=== PATIENT | female | born 1950 | race Hispanic/Latino ===

== ENCOUNTER → 2017-10-09 | Outpatient (CLI) | payer MEDICARE, OTHER ==
--- NOTE | 2017-10-09 11:39 | Diagnostic Imaging Report ---
PROCEDURE:US RETROPERITONEAL ( KIDNEY ). COMPARISON:Patients [facility], CT, CT ABDOMEN/PELVIS WOW, 02/28/2014, 9:01. Patients [facility], US, US RETROPERITONEAL ( KIDNEY )., 11/28/2016, 8:54. INDICATIONS:CYST OF KIDNEY TECHNIQUE: Davidson-scale and color sonographic images of the bilateral kidneys and bladder where obtained in transverse and longitudinal planes. FINDINGS: RIGHT KIDNEY: 10.4 cm, cortex 1.3 cm Cysts: 0.9 x 0.9 x 0.9 cm cystic, anechoic lesion in the inferior aspect (previously measured 1.0 x 0.9 cm). Solid masses: None Stones: None Hydronephrosis: None Echogenicity: Normal LEFT KIDNEY: 10.4 cm, cortex 1.4 cm Cysts: None Solid masses: None Stones: None Hydronephrosis: None Echogenicity: Normal Bladder: No focal lesions. Bilateral ureteral jets are identified. CONCLUSION: 1. Normal bilateral renal size, and echogenicity. No hydronephrosis, stones, or solid masses. 2. Stable 0.9 cm simple cyst in the inferior pole of the right kidney. Lino Tran M.D. Dictated by: Lino Tran M.D. on 10/09/2017 at 11:39 Electronically approved by: Lino Tran M.D. on 10/09/2017 at 11:39
== END ==
LOC: US 10:09
PROVIDERS: ATTEND Urology
DX: N28.1 Cyst of kidney, acquired (principal)
CPT/HCPCS: 76770